=== PATIENT | male | born 1970 | race Caucasian/White ===

== ENCOUNTER 2023-05-17 08:15 | Outpatient (CLI) | payer OTHER, SELFPAY ==
--- NOTE | 2023-05-17 08:20 | CT_ITS ---
WS: [id number] CT CALCIUM SCORE REASON FOR VISIT: FAMILY HX OF ISCHEMIC HEART DZ/NICOTINE DEPENDENCE/HTN; Coronary artery disease ri sk assessment COMPARISON: None TECHNIQUE: Noncontrast coronary CT in combination with quantitative analysis performed on a separate workstation were used to determine CACS (Agatston score) TOTAL EXAM DOSE: 81.08 mGy.cm ECG GATING: Prospective SCAN RANGE: Pulmonary artery bifurcation to Inferior aspect of heart COMPLICATIONS: None FINDINGS: Technical Quality/Examination Quality: Good Limitation: None OVERALL SCORES Total calcium score: 68 Total volume score: 88 mm3 Percentile: 50-75% ARTERY SCORES Left main coronary artery: 0 Left anterior descending artery: 17 Left circumflex artery: Right coronary artery: 34 OTHER FINDINGS: Mediastinum: Calcified RIGHT hilar lymph nodes. Thoracic aorta: Normal. Lungs: Normal. Upper Abdomen: Normal. IMPRESSION: Total calcium score 68 is between the 50th and 75th percentiles for age. Mildly increased risk for coronary event. GRADING OF CORONARY ARTERY DISEASE (BASED ON TOTAL CALCIUM SCORE) NO EVIDENCE OF CAD: 0 calcium score MINIMAL: 1-10 MILD: 11-100 MODERATE: 101-400 SEVERE:>400
== END 2023-05-17 08:16 | disposition home or self-care (01) ==
LOC: RAD 08:15
PROVIDERS: Visit Provider Family Medicine
DX: Z13.6 Encounter for screening for cardiovascular disorders (principal); I10 Essential (primary) hypertension; Z82.49 Family history of ischemic heart disease and other diseases of the circulatory system; F17.290 Nicotine dependence, other tobacco product, uncomplicated
CPT/HCPCS: 75571